=== PATIENT | female | born 1950 | race Hispanic/Latino ===

== ENCOUNTER → 2020-09-16 | Outpatient (CLI) | payer MEDICARE ==
[~2020-09-16] MED LIST: ALBUTEROL SULF 0.083% NEB SOLN 3 ML NEB ONE
== END ==
LOC: RESP 11:35
PROVIDERS: ATTEND Internal Medicine
DX: U07.1 COVID-19 (principal)
CPT/HCPCS: 94060; 94640; 94727; 94729